=== PATIENT | female | born 1945 | race Caucasian/White ===

== ENCOUNTER → 2017-06-07 | Outpatient (CLI) | payer BC, MEDICARE ==
[~2017-06-07] MED LIST: B-121000 MC1 PO; CLARITIN10 M3 PO; LEVOTHYROXINE50 MCG PO; LORATADINE PO; LORTAB 7.5-5001 TAB PO; PREMARIN PO; PREMARIN0.3 MG PO; VICOPROFEN 200-1 TAB PO; VIT E PO; VITAL-D RX TABL1 TAB PO; VITAMIN D1000 UNIT PO; VITAMIN D31000 UNIT PO; VITAMIN E400 UNI5 PO
--- NOTE | ~2017-06-07 | MY29 ---
[facility] A Service of [facility] RADIOLOGY TEXT RESULTS PATIENT: CASEY RANKIN LOCATION: [facility] : 49 UNIT #: [id number] AGE: [address]: Al Rayo MD SEX: F ORDER DR: [id number] [facility]. [place], [place] [address] [id number] O MR#: [id number] Acc #: [id number] NAME: CASEY RANKIN : 1945 SEX: F STUDY DATE/TIME: 06/07/2017 8:00 UNIT: [facility] ROOM: STUDY DESCRIPTION: MY GUANACO SCREENING W/ CAD BILAT Attending Physician: Al Rayo M.D. Referring Physician: Al Rayo M.D. Ordering Physician: Al Rayo M.D. Primary Care Physician: Al Rayo M.D. MEDICAL IMAGING REPORT This report is preliminary unless electronic signature is present EXAM Bilateral digital screening mammogram with CAD HISTORY Routine screening. No current complaints. Family history of breast cancer in grandmother. COMPARISON 06/04/2016, 06/03/2015. FINDINGS MLO and CC digital views of each breast were obtained and reviewed with an FDA-approved CAD device. There are also exaggerated lateral CC views. The breasts show scattered fibroglandular densities. There are no masses or abnormal calcifications. There has been no change. IMPRESSION No change. No evidence of malignancy. Patients over the age of 40 are entered into a reminder system with target due date for the next mammogram. A result letter will also be sent to the patient. BIRADS: 1 Negative STAT * RESULT Dictated by... Dex Cordero M.D. THIS IS AN ELECTRONICALLY VERIFIED REPORT [facility] A Service of [facility] RADIOLOGY TEXT RESULTS PATIENT: CASE[facility]ANKIN [id number] [birth year] UNIT #: [id number] AGE: [address]: Al Rayo MD SEX: F ORDER DR: Dex Cordero M.D. at 06/10/2017 1:25 PM DAYSI/antony TD: 06/10/2017 09:39 JOB #: [id number] MEDICAL IMAGING REPORT Page 1 of 1 COPY
== END | disposition home or self-care (01) ==
LOC: CWCC 07:27
DX: Z12.31 Encounter for screening mammogram for malignant neoplasm of breast (principal); Z80.3 Family history of malignant neoplasm of breast
CPT/HCPCS: G0202

== ENCOUNTER → 2017-06-24 | Day surgery (SDC) | payer BC, MEDICARE ==
--- NOTE | ~2017-06-24 | OR ---
Unit #: [id number] #: [id number] Patient: CASEY RANKIN [id number] [address] [place], [place] [address] [id number] O MR#: [id number] NAME: CASEY RANKIN. ROOM: Date of Procedure: 06/24/2017 Admission Date: 06/24/2017 Surgeon: Al Rayo M.D. : 1945 Attending Physician: Al Rayo M.D. Primary Care Physician: Al Rayo M.D. OPERATIVE REPORT PREOPERATIVE DIAGNOSIS Screening colonoscopy. POSTOPERATIVE DIAGNOSIS Screening colonoscopy. PROCEDURES PERFORMED 1. Colonoscopy to cecum. 2. Polypectomy x2 at 60 cm with electrocautery snare. ANESTHESIA Monitored anesthesia care. 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 Polyp x2 at 60 cm, each approximately 4 to 5 mm in size. Mild internal hemorrhoids. SPECIMENS Sent to pathology. COMPLICATIONS None apparent. CONDITION The patient tolerated the procedure well. INDICATIONS FOR PROCEDURE The patient is a 72-year-old white female, who presents at this time for screening colonoscopy. DESCRIPTION OF PROCEDURE After obtaining informed consent, the patient was brought to the endoscopy suite and after adequate monitored anesthesia care, had the colonoscope placed through the anus and advanced slowly to the level of the cecum without difficulty with the lumen always in view. The cecum was normal as was the ileocecal valve. There was scattered hughes-diverticular disease throughout the colon. Other than this, there was no abnormality seen in the ascending colon, hepatic flexure, transverse colon, splenic flexure, or proximal descending colon. At 60 cm, two polyps were present adjacent to each other. Each was excised with electrocautery snare, retrieved with a mucus trap, sent to pathology. There was good hemostasis. The remaining portion of the descending colon, sigmoid colon, rectosigmoid, Unit #: [id number] #: [id number] Patient: CASEY RANKIN and rectum were all within normal limits. On retroflexing in the rectum to the anorectal junction, there were some mild internal hemorrhoids. The scope was removed without difficulty. The patient tolerated the procedure well and went from the endoscopy suite to recovery area in stable condition. All was discussed with the patient's granddaughter, Kenton Prasad per telephone. RECOMMENDATIONS We will recommend diverticular sheet given, high-fiber diet, lots of liquids, tucks or wipes p.r.n. and follow up as needed. Call Tuesday for Pathology. Dictated by... Al Rayo M.D. JAGDISH/rekha TD: 06/24/2017 12:09 JOB #: [id number] CC: Umang Shi M.D. [facility] OPERATIVE REPORT Page 1 of 1 X Al Rayo MD X PROCEDURE OPERATIVE NOTE
== END | disposition home or self-care (01) ==
LOC: COPS 05:15
DX: Z12.11 Encounter for screening for malignant neoplasm of colon (principal); D12.6 Benign neoplasm of colon, unspecified; K57.30 Diverticulosis of large intestine without perforation or abscess without bleeding; K64.8 Other hemorrhoids; E03.9 Hypothyroidism, unspecified; E78.5 Hyperlipidemia, unspecified; Z90.49 Acquired absence of other specified parts of digestive tract; Z88.1 Allergy status to other antibiotic agents; Z88.8 Allergy status to other drugs, medicaments and biological substances; M19.90 Unspecified osteoarthritis, unspecified site; Z90.710 Acquired absence of both cervix and uterus; Z98.51 Tubal ligation status; Z98.890 Other specified postprocedural states
CPT/HCPCS: 88305